=== PATIENT | female | born 1990 | race Hispanic/Latino ===

== ENCOUNTER 2019-03-16 19:16 | Emergency (ER) | payer OTHER | END 2019-03-16 20:38 | disposition home or self-care (01) | LOC: EDH 19:16 | DX: F41.1 Generalized anxiety disorder (principal); R42 Dizziness and giddiness; L73.9 Follicular disorder, unspecified; R63.1 Polydipsia; Z88.1 Allergy status to other antibiotic agents | CPT/HCPCS: 82948 ==